=== PATIENT | male | born 1965 | race Caucasian/White ===

== ENCOUNTER → 2022-11-27 | Outpatient (CLI) | payer BC ==
[2022-11-27 15:10] LABS: HCT 45.1 % (39.0-53.0); MCH 30.5 pg (25.0-35.0); MCHC 35.5 g/dL (31.0-37.0); MCV 85.8 fL (80.0-100.0); Mean Platelet Volume 9.5; Platelet Count 155 k/uL (150-450); RBC 5.25 m/uL (4.30-5.90); RDW 12.9 % (11.5-15.5); WBC 6.5 k/uL (3.8-10.6)
[2022-11-27 15:21] LABS: ALT 32 U/L (4-49); AST 29 U/L (17-59); African American GFR (CKD) 85 (>60 ml/min/1.73 sqM); Albumin 4.1 g/dL (3.5-5.0); Albumin/Globulin Ratio 1.2; Alkaline Phosphatase 107 U/L (38-126); Anion Gap 5 mmol/L; Blood Urea Nitrogen 12 mg/dL (9-20); Calcium 9.1 mg/dL (8.4-10.2); Carbon Dioxide 27 mmol/L (22-30); Chloride 104 mmol/L (98-107); Globulin 3.5 g/dL; Glucose 77 mg/dL (74-99); Non-African American GFR(CKD) 73 (>60 ml/min/1.73 sqM); Potassium 4.2 mmol/L (3.5-5.1); Sodium 136 mmol/L (137-145); Total Bilirubin 1.7 mg/dL (0.2-1.3); Total Protein 7.6 g/dL (6.3-8.2)
== END | disposition home or self-care (01) ==
LOC: LABWHC1 13:00
PROVIDERS: ATTEND Surgery
DX: K81.1 Chronic cholecystitis (principal)
CPT/HCPCS: 36415; 80053; 85027

== ENCOUNTER 2022-11-28 08:20 | Day surgery (SDC) | payer BC ==
[2022-11-24 15:51] VITALS: BMI 33.4
--- NOTE | 2022-11-28 07:46 | P.GSHP ---
History of Present Illness H&P Date: 11/28/22 Chief Complaint: Chronic cholecystitis 57-year-old male here today for elective cholecystectomy. Patient last few months ago. Patient with intermittent attacks of right upper quadrant pain. Has had episodes of dark urine. Labs were recently checked and bilirubin was slightly elevated at 1.7. Ultrasound shows gallstones. Past Medical History Past Medical History: GERD/Reflux, Hypertension History of Any Multi-Drug Resistant Organisms: None Reported Past Surgical History: Orthopedic Surgery Additional Past Surgical History / Comment(s): rt rot cuff re pair,egd,colonoscopy Past Anesthesia/Blood Transfusion Reactions: Motion Sickness, Postoperative Nausea & Vomiting (PONV) Additional Past Anesthesia/Blood Transfusion Reaction / Comment(s): no hx blood transfusion Smoking Status: Never smoker - Past Family History Mother Family Medical History: No Reported History Medications and Allergies Home Medications Medication Instructions Recorded Confirmed Type Losartan Potassium 100 mg PO QAM 11/24/22 11/24/22 History Omeprazole [PriLOSEC] 40 mg PO QAM 11/24/22 11/24/22 History Allergies Allergy/AdvReac Type Severity Reaction Status Date / Time No Known Allergies Allergy Verified 11/24/22 15:41 Surgical - Exam Physical exam: General: Well-developed, well-nourished HEENT: Normocephalic, sclerae nonicteric Abdomen: Nontender, nondistended Extremities: No edema Neuro: Alert and oriented Assessment and Plan (1) Chronic cholecystitis Narrative/Plan: Will proceed with laparoscopic, possible open cholecystectomy at this time. Risks of bleeding, infection, bile leak, bile duct injury, retained common bile duct stone, trocar injury, conversion to an open procedure, hernia, anesthesia related complications were reviewed. The patient understands and wishes to proceed. Status: Acute Code(s): K81.1 - CHRONIC CHOLECYSTITIS SNOMED Code(s): 58893808
[~2022-11-28 08:20] MED LIST: ACETAMINOPHEN TAB 500 MG TAB PO PRN; HEPARIN SODIUM,PORCINE/PF 5,000 UNIT/0.5 ML SYRINGE SQ PRN
[2022-11-28] MEDS ORDERED: ONDANSETRON 4 MG/2 ML VIAL ONE (08:41)
[2022-11-28] MEDS ORDERED: DEXAMETHASONE SOD PHOSPHATE 4 MG/ML 1 ML VIAL IV ONE (08:42)
[2022-11-28] MEDS ORDERED: LACTATED RINGERS 1,000 ML IV SCH (08:42)
[2022-11-28] MEDS ORDERED: HYDROmorphone 0.5 MG/0.5 ML SYRINGE IVP PRN (08:42)
[2022-11-28] MEDS ORDERED: ONDANSETRON 4 MG/2 ML VIAL IVP ONE (08:42)
[2022-11-28] MEDS ORDERED: MIDAZOLAM 2 MG/2 ML VIAL IV PRN (08:42)
[2022-11-28] MEDS ORDERED: SCOPOLAMINE 1 MG/72 HR PATCH TRANSDERM ONE ×2 (08:42→09:28)
[2022-11-28] MEDS ORDERED: hydrALAZINE HCL 20 MG/ML 1 ML VIAL IVP ONE ×4 (09:05→12:49)
[2022-11-28] MEDS ORDERED: BUPIVACAINE (PF) 0.25% 10 ML VIAL SQ ONE ×2 (09:13→09:47)
[2022-11-28] MEDS ORDERED: MIDAZOLAM 2 MG/2 ML VIAL IVP ONE (09:15)
[2022-11-28] MEDS ORDERED: NEOSTIGMINE 1 MG/ML 10 ML VIAL ONE (09:25)
[2022-11-28] MEDS ORDERED: LABETALOL 5 MG/ML VIAL MDV ONE (09:25)
[2022-11-28] MEDS ORDERED: SUCCINYLCHOLINE CHLORIDE 200 MG/10 ML VIAL IV ONE (09:25)
[2022-11-28] MEDS ORDERED: PROPOFOL 10 MG/ML 20 ML VIAL IV ONE (09:25)
[2022-11-28] MEDS ORDERED: GLYCOPYRROLATE 0.2 MG/ML 2 ML VIAL ONE (09:25)
[2022-11-28] MEDS ORDERED: fentaNYL (PF) 50 MCG/ML 2 ML AMP ONE (09:25)
[2022-11-28] MEDS ORDERED: ROCURONIUM 10 MG/ML (5 ML VIAL) IV ONE (09:25)
[2022-11-28] MEDS ORDERED: KETOROLAC 15 MG/ML 1 ML VIAL ONE (09:25)
[2022-11-28] MEDS ORDERED: LIDOCAINE 2% INJ 20 MG/ML (2 ML VIAL) ONE (09:25)
[2022-11-28] MEDS ORDERED: LACTATED RINGERS 1,000 ML IV ONE (10:01)
[2022-11-28 10:53] VITALS: TEMP 97.5
--- NOTE | 2022-11-28 11:01 | P.OP ---
Date of Procedure: 11/28/22 Procedure(s) Performed: PREOPERATIVE DIAGNOSIS: Chronic cholecystitis POSTOPERATIVE DIAGNOSIS: Same PROCEDURE: Laparoscopic cholecystectomy SURGEON: Deni EBL: Minimal see anesthesia record ANESTHESIA: Gen. COMPLICATIONS: None OPERATIVE PROCEDURE: The patient was brought and placed on the operating room table in the supine position. The patient was placed under general anesthesia at that time. The abdomen was prepped and draped in the usual sterile fashion. A small vertical infraumbilical incision was made. The fascia was grasped with the Samm forceps. The fascia was retracted anteriorly. The Veress needle was advanced into the peritoneal cavity. The saline drop test was normal. Insufflation took place up to 15 mmHg. A 5 mm optical trocar was advanced and the peritoneal cavity. 2 additional 5 mm trochars were placed in the right upper quadrant under direct visualization. A 12 mm trocar was advanced into the epigastric incision site. The gallbladder had some significant chronic inflammation. The gallbladder wall was quite thickened. The gallbladder was retracted superiorly and laterally. The peritoneum overlying the infundibulum was bluntly dissected. The patient's cystic duct was visualized. The junction between the cystic duct common and hepatic duct was identified. The critical view of safety was achieved after blunt dissection. The cystic duct was then divided after placement of 3 12 mm clips on the patient's side and one on the specimen side. The cystic artery was identified and clipped as well. A small vessel was seen along the gallbladder fossa and clipped as well. The gallbladder was then removed from the liver bed using electrocautery. The gallbladder was then removed from the epigastric trocar site with an Endo Catch bag. The gallbladder fossa was irrigated with saline. There was no evidence of any bleeding or biliary drainage seen. The fascia at the 12 millimeter site was closed using a John-Carmella 0 Vicryl stitch. The trochars were then removed. The skin at all 4 sites was closed using a 4-0 Monocryl stitch. Skin glue was utilized on the incision sites. At the end of this procedure the sponge and needle counts were correct. DISPOSITION: Stable to the recovery room
[2022-11-28] MEDS ORDERED: ACETAMINOPHEN TAB 325 MG TAB PO SCH (12:00)
[2022-11-28 12:10] VITALS: RESP 18
[2022-11-28] MEDS ORDERED: hydrALAZINE HCL 20 MG/ML 1 ML VIAL ONE (12:47)
[2022-11-28] MEDS ORDERED: traMADol 50 MG TAB PO SCH (13:00)
[2022-11-28 13:18] VITALS: BP 171/88; PULSE 68
[2022-11-28] MEDS ORDERED: IBUPROFEN 600 MG TAB PO SCH (14:00)
== END 2022-11-28 13:26 | disposition home or self-care (01) ==
LOC: OR 08:20
PROVIDERS: ATTEND Surgery
DX: K80.10 Calculus of gallbladder with chronic cholecystitis without obstruction (principal); I10 Essential (primary) hypertension; K21.9 Gastro-esophageal reflux disease without esophagitis; Z79.811 Long term (current) use of aromatase inhibitors; Z98.890 Other specified postprocedural states; Z79.899 Other long term (current) drug therapy
CPT/HCPCS: 88304; 47562; J2250; J0330; J0360; J1100; J2710; J0690; J2405; J3010; J1885; J2704; J1644; J2001; J1920; J0665

== ENCOUNTER 2023-09-08 21:02 | Emergency (ER) | payer BC ==
[2023-09-08 21:06] VITALS: RESP 18
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
[2023-09-08] MEDS: ACET/COD 300 MG/30 MG STARTER PACK 6 TAB BTL PO STA (23:02)
[2023-09-08 23:15] VITALS: BP 150/85; PULSE 93; TEMP 98
--- NOTE | 2023-09-08 23:21 | XR ---
EXAMINATION TYPE: XR hand complete RT DATE OF EXAM: 09/08/2023 CLINICAL HISTORY: Injury TECHNIQUE: Frontal, lateral and oblique images of the right hand are obtained. COMPARISON: None. FINDINGS: There is acute slightly displaced comminuted fracture through the head of the fifth metacar pal. Joint spaces in the right hand are preserved. Overlying soft tissues are unremarkable. IMPRESSION: There is acute comminuted slightly displaced fracture through the distal metaphysis of t he fifth metacarpal. (Boxer fracture)
== END 2023-09-08 23:16 | disposition home or self-care (01) ==
LOC: EC 21:02
DX: S62.306A Unspecified fracture of fifth metacarpal bone, right hand, initial encounter for closed fracture (principal); Z88.0 Allergy status to penicillin; Y04.2XXA Assault by strike against or bumped into by another person, initial encounter
CPT/HCPCS: 99283